=== PATIENT | female | born 1985 | race Caucasian/White ===

== ENCOUNTER → 2018-05-21 | Outpatient (CLI) | payer OTHER | LOC: BMCIMAGING 16:48 | PROVIDERS: ATTEND Family Medicine | DX: S62.336A Displaced fracture of neck of fifth metacarpal bone, right hand, initial encounter for closed fracture (principal) ==

== ENCOUNTER 2018-06-05 03:51 | Emergency (ER) | payer BC ==
[2018-06-05 03:59] VITALS: BP 126/94
--- NOTE | 2018-06-05 04:02 | EDPHY ---
H & P Stated Complaint: constipation and abd cramping stop taking pain meds3-4 Time Seen by Provider: 06/05/18 04:02 HPI/ROS: HPI CHIEF COMPLAINT: Constipation. HISTORY OF PRESENT ILLNESS: 33-year-old female, otherwise healthy, recently had hand surgery 9 days ago and was taking narcotic pain medicine up until 5 days ago, she has not had a bowel movement 2 days. She tried to go this evening and felt very constipated adult very hard stools unable to fully evacuate this. This caused her rectal discomfort. She decided come the emergency room for evaluation. Denies significant abdominal pain, vomiting. She has been eating appropriately. No fever. Patient reports she typically use the bathroom every day or every other day. Past Medical History: Denies significant medical history Past Surgical History: Right hand surgery 9 days ago. Social History: Denies drugs alcohol tobacco. Family History: Noncontributory ROS REVIEW OF SYSTEMS: 10 Systems were reviewed and negative with the exception of the elements mentioned in the history of present illness. Exam Constitutional triage nursing summary reviewed, vital signs reviewed, awake/ alert. Eyes normal conjunctivae and sclera, EOMI, PERRLA. HENT normal inspection, atraumatic, moist mucus membranes, no epistaxis, neck supple/ no meningismus, no raccoon eyes. Respiratory clear to auscultation bilaterally, normal breath sounds, no respiratory distress, no wheezing. Cardiovascular rate normal, regular rhythm, no murmur, no edema, distal pulses normal. Gastrointestinal hypoactive bowel sounds but nontender soft, non-tender, no rebound, no guarding, no distension, no pulsatile mass. Genitourinary no CVA tenderness. Musculoskeletal no midline vertebral tenderness, full range of motion, no calf swelling, no tenderness of extremities, no meningismus, good pulses, neurovascularly intact. Skin pink, warm, & dry, no rash, skin atraumatic. Neurologic awake, alert and oriented x 3, AAOx3, moves all 4 extremities equally, motor intact, sensory intact, CN II-XII intact, normal cerebellar, normal vision, normal speech. Psychiatric normal mood/affect. Heme/Lymph/Immune no lymphadenopathy. Differential Diagnosis: Includes but is not limited to in a particular order constipation, fecal impaction, bowel obstruction Medical Decision Making: Plan for this patient KUB. After review KUB may plan for soapsuds enema. Re-evaluation: KUB reviewed this shows significant amount of stool burden rectal vault, descending colon as well as ascending and transverse colon. No free air no bowel gas pattern consistent with obstruction this images interpreted by myself. 0454: Patient had a soapsuds enema. She had a large bowel movement here in the ER bathroom is feeling much better. No significant abdominal pain on exam. She would like to go home. MiraLax provided. Additionally return precautions discussed return emergency room if worsening abdominal pain, fever, vomiting - Personal History LMP (Females 10-55): IUD In Place Current Tetanus/Diphtheria Vaccine: Unsure Current Tetanus Diphtheria and Acellular Pertussis (TDAP): Unsure - Medical/Surgical History Hx Asthma: No Hx Chronic Respiratory Disease: No Hx Diabetes: No Hx Cardiac Disease: No Hx Renal Disease: No Hx Cirrhosis: No Hx Alcoholism: No Hx HIV/AIDS: No Hx Splenectomy or Spleen Trauma: No Other PMH: right hand surgery - Social History Smoking Status: Never smoked Constitutional: Initial Vital Signs Temperature (C) 36.5 C 06/05/18 03:55 Heart Rate 90 06/05/18 03:55 Respiratory Rate 16 06/05/18 03:55 Blood Pressure 126/94 H 06/05/18 03:55 O2 Sat (%) 97 06/05/18 03:55 O2 Delivery Mode Room Air Allergies/Adverse Reactions: No Known Allergies Allergy (Unverified 06/05/18 03:58) Home Medications: Medication Instructions Recorded Hydrocodone-Acetamin 10-300 mg 06/05/18 Polyethylene Glycol 3350 [Miralax 17 gm PO DAILY #4 pkt 06/05/18 17 gm (*)] Departure - Departure Disposition: Home, Routine, Self-Care Clinical Impression: Constipation Qualifiers: Constipation type: slow transit constipation Qualified Code(s): K59.01 - Slow transit constipation Condition: Good Instructions: Constipation (ED) Additional Instructions: 1. Drink lots of fluids. 2. Increase your fruits and vegetables 3. MiraLax as prescribed Referrals: NONE *PRIMARY CARE P,. [Primary Care Provider] - As per Instructions Prescriptions: Polyethylene Glycol 3350 [Miralax 17 gm (*)] 17 gm PO DAILY #4 pkt
== END 2018-06-05 05:00 | disposition home or self-care (01) ==
DX: K59.01 Slow transit constipation (principal)

== ENCOUNTER → 2018-11-01 | Outpatient (CLI) | payer BC | LOC: BMCIMAGING 13:49 ==